=== PATIENT | female | born 1975 | race Caucasian/White ===

== ENCOUNTER 2018-03-22 09:16 | Day surgery (SDC) | payer OTHER ==
[2018-03-22 09:54] VITALS: BP 96/62; PULSE 74; TEMP 98.3
[2018-03-22] MEDS ORDERED: IRON SUCROSE INJECTION 200 MG in SODIUM CHLORIDE 100 ML IVPB ONE (10:00)
== END 2018-03-22 11:30 | disposition home or self-care (01) ==
LOC: FINFUSION 09:16 → EDSEX 09:16 → FM/S 09:19 → FINFUSION 11:30
PROVIDERS: ATTEND Internal Medicine Hematology & Oncology
PROC: 3E033GC Introduction of Other Therapeutic Substance into Peripheral Vein, Percutaneous Approach (ICD-10-PCS; principal; 2018-03-22)
DX: D64.9 Anemia, unspecified (principal)
CPT/HCPCS: 96365; J1756

== ENCOUNTER 2018-03-25 09:30 | Day surgery (SDC) | payer OTHER ==
[2018-03-25] MEDS ORDERED: IRON SUCROSE INJECTION 200 MG in SODIUM CHLORIDE 100 ML IVPB ONE (10:30)
[2018-03-25 12:39] VITALS: PULSE 75; TEMP 97.8; BMI 20.5
[2018-03-25 12:55] VITALS: BP 98/54
== END 2018-03-25 11:30 | disposition home or self-care (01) ==
LOC: FINFUSION 09:30 → FM/S 09:35 → FINFUSION 11:30
PROVIDERS: ATTEND Internal Medicine Hematology & Oncology
PROC: 3E033GC Introduction of Other Therapeutic Substance into Peripheral Vein, Percutaneous Approach (ICD-10-PCS; principal; 2018-03-25)
DX: D64.9 Anemia, unspecified (principal)
CPT/HCPCS: 96365; J1756

== ENCOUNTER 2018-03-29 09:29 | Day surgery (SDC) | payer OTHER ==
[2018-03-29] MEDS ORDERED: IRON SUCROSE INJECTION 200 MG in SODIUM CHLORIDE 100 ML IVPB ONE (10:00)
[2018-03-29 10:11] VITALS: TEMP 98.2; BMI 18.8
[2018-03-29 11:15] VITALS: BP 100/64; PULSE 70
== END 2018-03-29 11:15 | disposition home or self-care (01) ==
LOC: FINFUSION 09:29 → FM/S 09:30 → FINFUSION 11:15
PROVIDERS: ATTEND Internal Medicine Hematology & Oncology
PROC: 3E033GC Introduction of Other Therapeutic Substance into Peripheral Vein, Percutaneous Approach (ICD-10-PCS; principal; 2018-03-29)
DX: D64.9 Anemia, unspecified (principal)
CPT/HCPCS: 96365; J1756

== ENCOUNTER 2018-04-01 09:39 | Day surgery (SDC) | payer OTHER ==
[2018-04-01] MEDS ORDERED: IRON SUCROSE INJECTION 200 MG in SODIUM CHLORIDE 100 ML IVPB ONE (10:00)
[2018-04-01 10:03] VITALS: BP 100/64; PULSE 77; TEMP 97.8; BMI 19.1
[2018-04-01] MEDS ORDERED: CYANOCOBALAMIN (VITAMIN B-12) 1000 MCG/1 ML VIAL SQ ONE (10:30)
== END 2018-04-01 11:32 | disposition home or self-care (01) ==
LOC: FINFUSION 09:39 → FM/S 09:41 → FINFUSION 11:32
PROVIDERS: ATTEND Internal Medicine Hematology & Oncology
PROC: 3E033GC Introduction of Other Therapeutic Substance into Peripheral Vein, Percutaneous Approach (ICD-10-PCS; principal; 2018-04-01)
PROC: 3E013GC Introduction of Other Therapeutic Substance into Subcutaneous Tissue, Percutaneous Approach (ICD-10-PCS; 2018-04-01)
DX: D64.9 Anemia, unspecified (principal)
CPT/HCPCS: 96365; 96372; J1756